=== PATIENT | male | born 1985 | race Caucasian/White ===

== ENCOUNTER 2016-10-18 19:45 | Emergency (ER) | payer MEDICAID ==
[~2016-10-18] VITALS: Ht 177.8 cm; Wt 108.9 kg
[2016-10-18 19:54] VITALS: BP 130/90
--- NOTE | 2016-10-18 20:25 | NUR ---
PT TAKEN TO BED 5
--- NOTE | 2016-10-18 20:30 | NUR ---
31 Y/O M W/C/O SORETHROAT, COUGH, RUNNY NOSE, BODY ACHES, NAUSEA AND DIARRHEA X 3 DAYS. O2 SAT 97 % RA, NO S/S OF RESP DISTRESS NOTED AT THE MOMENT. ER MADE AWARE.
[2016-10-18] MEDS ORDERED: ACETAMIN/CODEINE 120/12MG-5ML 5 ML UDC PO ONE (21:10)
--- NOTE | 2016-10-18 21:20 | NUR ---
XRAY AT BEDSIDE.
[2016-10-18 21:50] VITALS: BP 138/90
--- NOTE | 2016-10-18 21:50 | NUR ---
Patient discharged with v/s stable. Written and verbal after care instructions given and explained. Patient alert, oriented and verbalized understanding of instructions. Ambulatory with steady gait. All questions addressed prior to discharge. ID band removed. Patient advised to follow up with PMD TOMORROW OR RETURN TO ER IF CONDITION WORSENS. Rx of AZITHROMYCIN AND GUAIATUSSIN given. Patient educated on indication of medication including possible reaction and side effects. Opportunity to ask questions provided and answered.
== END 2016-10-18 21:50 | disposition home or self-care (01) ==
LOC: MED 19:45 → EDBD 19:45 → MED 21:50
DX: J20.9 Acute bronchitis, unspecified (principal); J02.9 Acute pharyngitis, unspecified
CPT/HCPCS: 71010; 99283; Q0092

== ENCOUNTER 2017-07-14 12:53 | Emergency (ER) | payer MEDICAID ==
[~2017-07-14] VITALS: Ht 177.8 cm; Wt 113.4 kg
[2017-07-14 13:08] VITALS: BP 152/78
--- NOTE | 2017-07-14 13:12 | NUR ---
PATIENT PRESENTS TO ED WITH C/O RT EAR ACH 3/10 WITH HEARING LOSS X 1 WK HX; DENIES RX; DENIES DENIES N/V/D; SKIN IS PINK/WARM/DRY; AAOX4 WITH EVEN AND STEADY GAIT; LUNGS CLEAR BL; HR EVEN AND REGULAR; PT DENIES ANY FEVER, CP, SOB, OR COUGH AT THIS TIME; PATIENT STATES PAIN OF 3/10 AT THIS TIME; VSS; PATIENT POSITIONED FOR COMFORT; ER MD MADE AWARE OF PT STATUS.
[2017-07-14 14:00] VITALS: BP 144/84
--- NOTE | 2017-07-14 14:00 | NUR ---
Patient discharged with v/s stable. Written and verbal after care instructions given and explained. Patient verbalized understanding. Ambulatory with steady gait. All questions addressed prior to discharge. Advised to follow up with PMD.
== END 2017-07-14 14:00 | disposition home or self-care (01) ==
LOC: MED 12:53
DX: H61.21 Impacted cerumen, right ear (principal); R03.0 Elevated blood-pressure reading, without diagnosis of hypertension
CPT/HCPCS: 99283

== ENCOUNTER 2018-06-01 15:04 | Emergency (ER) | payer SELFPAY ==
[~2018-06-01] VITALS: Ht 175.3 cm; Wt 104.3 kg
--- NOTE | 2018-06-01 15:17 | NUR ---
PT AMBULATED TO ER BED 07
[2018-06-01 15:18] VITALS: BP 135/98
--- NOTE | 2018-06-01 15:27 | NUR ---
PATIENT PRESENTS TO ED WITH C/O RITIKA EYES REDNESS AND PAIN SINCE LAST NIGHT. AAOX4 WITH EVEN AND STEADY GAIT; LUNGS CLEAR BL; HR EVEN AND REGULAR; PT DENIES ANY FEVER, CP, SOB, OR COUGH AT THIS TIME; DENIES N/V/D; SKIN IS PINK/WARM/DRY; PATIENT STATES EYES PAIN OF 8/10 AT THIS TIME; VSS; PATIENT POSITIONED FOR COMFORT; HOB ELEVATED; BEDRAILS UP X2; BED DOWN. ER MD MADE AWARE OF PT STATUS.
--- NOTE | 2018-06-01 15:48 | NUR ---
Patient being evaluated by physician at bedside.
[2018-06-01 18:18] VITALS: BP 132/88
--- NOTE | 2018-06-01 18:18 | NUR ---
Patient discharged with v/s stable. Written and verbal after care instructions given and explained. Patient alert, oriented and verbalized understanding of instructions. Ambulatory with steady gait. All questions addressed prior to discharge. ID band removed. Patient advised to follow up with PMD. Rx of MOTRIN, PREDNISONE, BENADRYL given. Patient educated on indication of medication including possible reaction and side effects. Opportunity to ask questions provided and answered.
== END 2018-06-01 18:18 | disposition home or self-care (01) ==
LOC: MED 15:04
DX: H10.13 Acute atopic conjunctivitis, bilateral (principal)
CPT/HCPCS: 99283